=== PATIENT | female | born 1990 | race Caucasian/White ===

== ENCOUNTER 2016-11-22 23:24 | Emergency (ER) | payer OTHER ==
[~2016-11-22] VITALS: Ht 160 cm; Wt 72.7 kg
[2016-11-22 23:32] VITALS: Ht 160 cm; Wt 72.7 kg
--- NOTE | 2016-11-22 23:48 | ERD ---
ER Documentation Chief Complaint Date/Time DATE: 11/22/16 TIME: 23:46 Chief Complaint EPIGASTRIC CHEST PAIN TODAY AND SHARP ABD PAIN WITH NAUSEA HPI 26-year-old female presents here in emergency department for complaint of epigastric pain made chest pain started today, started at 2 PM today, patient states that she is a lot of spicy food. Patient states that it started in the epigastric area radiating to the back, and now is spreading onto the chest area. Patient described the pain as sharp burning pain 4/10 scale, not better or worse with anything. Patient denies any nausea or vomiting. Patient denies any palpitations or regular heartbeat. Patient denies any dizziness. Patient denies any fever or chills. ROS All systems reviewed and are negative except as per history of present illness. Medications Home Meds Active Scripts Ondansetron (Ondansetron Odt) 4 Mg Tab.rapdis, 4 MG PO Q8 Y for NAUSEA AND/OR VOMITING, #30 TAB Prov:VOILETA WOODSON NP 11/23/16 Magaldrate/Simethicone* (Mylanta*) 355 Ml Susp, 30 ML PO QID Y for GASTROINTESTINAL UPSET, #1 BOTTLE Prov:VIOLETA WOODSON NP 11/23/16 Omeprazole* (Omeprazole*) 20 Mg Capsule.dr, 20 MG PO DAILY, #30 Prov:VIOLETA WOODSON NP 11/23/16 Hydrocodone/Acetaminophen (Pentwater 5-325 Tablet) 1 Each Tablet, 1 TAB PO Q6H Y for SEVERE PAIN LEVEL 7-10, #20 TAB Prov:VIOLETA WOODSON NP 11/23/16 Reported Medications [none] Unknown Strength No Conflict Check 11/22/16 Allergies Allergies: Coded Allergies: No Known Allergy (Unverified , 11/22/16) PMhx/Soc Medical and Surgical Hx: pt denies Medical Hx, pt denies Surgical Hx FmHx Family History: No coronary disease, No diabetes, No other Physical Exam Vitals Vital Signs Date Time Temp Pulse Resp B/P Pulse Ox O2 Delivery O2 Flow Rate FiO2 11/22/16 23:32 98.5 76 16 133/66 99 Physical Exam GENERAL: The patient is well developed and appropriate for usual state of health, in no apparent distress. CHEST: Clear to auscultation bilaterally. There are no rales, wheezes or rhonchi. HEART: Regular rate and rhythm. No murmurs, clicks, rubs or gallops. No S3 or S4. ABDOMEN: Soft, nontender and nondistended. Good bowel sounds. No rebound or guarding. No gross peritonitis. No gross organomegaly or masses. No Hinton sign or McBurney point tenderness. BACK: No midline or flank tenderness. EXTREMITIES: Equal pulses bilaterally. There is no peripheral clubbing, cyanosis or edema. No focal swelling or erythema. Full range of motion. Grossly neurovascularly intact. NEURO: Alert and oriented. Cranial nerves 2-12 intact. Motor strength in all 4 extremities with 5/5 strength. Sensation grossly intact. Normal speech and gait. SKIN: There is no apparent rash or petechia. The skin is warm and dry. HEMATOLOGIC AND LYMPHATIC: There is no evidence of excessive bruising or lymphedema. No gross cervical, axillary, or inguinal lymphadenopathy. Result Diagram: 11/23/16 0015 11/23/16 0015 Results 24 hrs Laboratory Tests Test 11/23/16 00:01 11/23/16 00:15 Urine Color LT. YELLOW Urine Clarity CLEAR Urine pH 6.5 Urine Specific [place] 1.015 Urine Ketones NEGATIVE Urine Nitrite NEGATIVE Urine Bilirubin NEGATIVE Urine Urobilinogen 0.2 E.U./dL Urine Leukocyte Esterase NEGATIVE Urine Microscopic RBC 0-2/HPF Urine Microscopic WBC 0-2/HPF Urine Squamous Epithelial Cells MANY Urine Amorphous Urates FEW Urine Bacteria OCCASIONAL Urine Hemoglobin 1+ Urine Glucose NEGATIVE% Urine Total Protein NEGATIVE White Blood Count 9.510^3/ul Red Blood Count 3.9610^6/ul Hemoglobin 12.4g/dl Hematocrit 36.1% Mean Corpuscular Volume 91.2fl Mean Corpuscular Hemoglobin 31.3pg Mean Corpuscular Hemoglobin Concent 34.3g/dl Red Cell Distribution Width 11.9% Platelet Count 55793^3/UL Mean Platelet Volume 9.9fl Neutrophils % 61.9% Lymphocytes % 31.0% Monocytes % 5.2% Eosinophils % 1.5% Basophils % 0.2% Nucleated Red Blood Cells % 0.0/100WBC Neutrophils # 5.910^3/ul Lymphocytes # 2.910^3/ul Monocytes # 0.510^3/ul Eosinophils # 0.110^3/ul Basophils # 0.010^3/ul Nucleated Red Blood Cells # 0.010^3/ul Sodium Level 136mmol/L Potassium Level 3.9mmol/L Chloride Level 102mmol/L Carbon Dioxide Level 27mmol/L Anion Gap 11 Blood Urea Nitrogen 15mg/dl Creatinine 0.77mg/dl Glucose Level 100mg/dl Calcium Level 9.4mg/dl Total Bilirubin 0.2mg/dl Direct Bilirubin 0.00mg/dl Indirect Bilirubin 0.2mg/dl Aspartate Amino Transf (AST/SGOT) 16IU/L Alanine Aminotransferase (ALT/SGPT) 23IU/L Alkaline Phosphatase 75IU/L Total Protein 7.7g/dl Albumin 4.4g/dl Globulin 3.30g/dl Albumin/Globulin Ratio 1.33 Lipase 196U/L Current Medications Medications (Trade) Dose Ordered Sig/[place]lesia Route PRN Reason Start Time Stop Time Status Last Admin Dose Admin Miscellaneous Medication (Gi Cocktail (2)) 40 ml ONCE ONCE PO 11/23/16 00:00 11/23/16 00:01 DC 11/23/16 00:00 Famotidine (Pepcid) 20 mg ONCE ONCE PO 11/23/16 01:00 11/23/16 01:01 DC 11/23/16 01:03 Acetaminophen/ Hydrocodone Bitart (P[place] (5/325)) 1 tab ONCE ONCE PO 11/23/16 01:30 11/23/16 01:31 UNV EKG was done, read by me and is normal sinus rhythm at a rate of 71, normal axis , there is no ST changes or changes in the EKG that indicates any cardiac emergencies at this time. Patient's EKG was also reviewed by Dr. Calderon. Impression: no acute findings on EKG GI cocktail was given here in emergency department, after treatment, patient verbalized feeling much better. PROCEDURE: US right upper quadrant CLINICAL INDICATION: Abdominal pain TECHNIQUE: Multiple real-time images were acquired of the patient's right upper abdomen utilizing a high resolution transducer. COMPARISON: None available FINDINGS: Liver: Normal in size, contour and echogenicity. The maximum dimension estimated at 16.5 cm. The main portal vein is patent with normal directional blood flow. . Gallbladder: Multiple mobile echogenic foci with distal acoustic shadowing are present. . There is no evidence of gallbladder wall thickening or pericholecystic fluid. No sonographic Hinton's sign is reported. Common bile duct: Normal; 3.3 mm. There is no evidence for choledocholithiasis. Right Kidney: Normal; maximum length measured at approximately 10.5 cm. Pancreas: Visualized portions are normal. The tail is partially obscured by bowel gas. RPTAT:HJJR IMPRESSION: Cholelithiasis without evidence of cholecystitis. Geo Crane Physician Date Time Electronically viewed and signed by Physician Doris on 11/23/2016 00:59 JR/ CC: VIOLETA WOODSON ANALYTICAL RESEARCH CHEMIST PROCEDURE: XR Chest. CLINICAL INDICATION: Chest pain. Abdominal pain TECHNIQUE: Portable AP upright view of the chest was obtained. COMPARISON: None. FINDINGS: The cardiomediastinal silhouette is within normal limits. The lungs are clear. There is no evidence for pleural effusion, pneumothorax or pulmonary vascular congestion. The osseous structures are intact with no evidence for acute abnormality. No free air seen below the diaphragm. RPTAT:HJJR IMPRESSION: No evidence for acute intrathoracic pathology. Geo Crane Physician Date Time Electronically viewed and signed by Physician Doris on 11/23/2016 00:58 JR/ CC: VIOLETA WOODSON NP CC: VIOLETA WOODSON NP Procedures/MDM Medical Decision Making: Patient's symptoms most likely consistent with biliary colic, and also gastritis acid reflux disease. No symptoms of cholecystitis, choledocholithiasis. There is low suspicion for abdominal emergencies at this time. Patients abdominal exam is normal at this time. Patients radiology exam does not show any abdominal emergencies at this time. There is low suspicion for appendicitis, cholecystitis, abdominal aortic aneurysms or peritonitis at this time. There is low suspicion for sepsis. Patient appears well and is hemodynamically stable.M There is low suspicion for cardiopulmonary emergencies at this time. Patient has low risk factors. EKG is normal, there is no changes in the EKG that indicates cardiac emergencies. Chest X-ray does not show cardiopulmonary emergencies at this time. There is low suspicion for aortic aneurysm, myocardial infarction, pneumothorax, pleural effusion, pulmonary embolism, or any other cardiopulmonary emergencies at this time. Disposition: Home. Condition: Stable Prescription Pentwater omeprazole Mylanta Zofran Instructions: Patient is advised to take medications as prescribed. Patient is advised to rest, increase fluid intake and do brat diet for next 1-2 days and progress as tolerated him avoid fatty food, eat at regular intervals. See general surgeon for possible removal of gallbladder.. Patient is advised that if symptoms are worse, severe abdominal pain, uncontrolled vomiting, high fever , severe flank pain, worst signs and symptoms, to return to the emergency department immediately. Otherwise, patient can follow up with primary care doctor in 5-7 days. Departure Diagnosis: Primary Impression: Biliary colic Additional Impression: Acid reflux Esophagitis presence: without esophagitis Qualified Code: K21.9 - Gastroesophageal reflux disease without esophagitis Condition: Stable Patient Instructions: Biliary Colic With Gallstone (Confirmed), Gastroesophageal Reflux Disease (GERD) Additional Instructions: Patient is advised to take medications as prescribed. Patient is advised to rest , increase fluid intake and do brat diet for next 1-2 days and progress as tolerated him avoid fatty food, eat at regular intervals. See general surgeon for possible removal of gallbladder.. Patient is advised that if symptoms are worse, severe abdominal pain, uncontrolled vomiting, high fever, severe flank pain, worst signs and symptoms, to return to the emergency department immediately. Otherwise, patient can follow up with primary care doctor in 5-7 days. VIOLETA WOODSON NP Nov 22, 2016 23:48
[2016-11-23] MEDS ORDERED: LIDOCAINE/MYLANTA 40 ML BTL PO ONE
[2016-11-23 00:22] LABS: ADD SCAN DIFF NO
[2016-11-23 00:28] LABS: BASOPHILS % 0.2 % (0.0-2.0); EOSINOPHILS # 0.1 10^3/ul (0.0-0.5); EOSINOPHILS % 1.5 % (0.0-7.0); HEMATOCRIT 36.1 % (37.0-47.0); HEMOGLOBIN 12.4 g/dl (12.0-16.0); LYMPHOCYTES # 2.9 10^3/ul (0.8-2.9); MEAN CORPUSCULAR HEMOGLOBIN 31.3 pg (29.0-33.0); MEAN CORPUSCULAR HGB CONC 34.3 g/dl (32.0-37.0); MEAN CORPUSCULAR VOLUME 91.2 fl (82.0-101.0); MEAN PLATELET VOLUME 9.9 fl (7.4-10.4); MONOCYTE # 0.5 10^3/ul (0.3-0.9); MONOCYTES % 5.2 % (0.0-11.0); NEUTROPHIL # 5.9 10^3/ul (1.6-7.5); NEUTROPHILS % 61.9 % (39.0-77.0); PLATELET COUNT 248 10^3/UL (140-415); RED BLOOD COUNT 3.96 10^6/ul (4.20-5.40); RED CELL DISTRIBUTION WIDTH 11.9 % (11.5-14.5); WHITE BLOOD COUNT 9.5 10^3/ul (4.8-10.8)
[2016-11-23 00:39] LABS: ALBUMIN 4.4 g/dl (3.3-4.9); ALBUMIN/GLOBULIN RATIO 1.33; BILIRUBIN,INDIRECT 0.2 mg/dl (0-1.1); BILIRUBIN,TOTAL 0.2 mg/dl (0.2-1.3); CALCIUM 9.4 mg/dl (8.4-10.2); CREATININE 0.77 mg/dl (0.44-1.00); POTASSIUM 3.9 mmol/L (3.5-5.1); TOTAL PROTEIN 7.7 g/dl (6.1-8.1)
[2016-11-23 00:41] LABS: ADD UMIC YES; URINE BILIRUBIN (Dip) NEGATIVE (NEGATIVE); URINE BLOOD (Dip) 1+ (NEGATIVE); URINE COLOR LT. YELLOW (YELLOW); URINE GLUCOSE (Dip) NEGATIVE (NEGATIVE); URINE KETONES (Dip) NEGATIVE (NEGATIVE); URINE LEUKOCYTE ESTERASE (Dip) NEGATIVE (NEGATIVE); URINE NITRITE (Dip) NEGATIVE (NEGATIVE); URINE TOTAL PROTEIN (Dip) NEGATIVE (NEGATIVE); URINE UROBILINOGEN (Dip) 0.2 E.U./dL (0.1-1.0)
--- NOTE | 2016-11-23 00:58 | RADRPT ---
PROCEDURE: XR Chest. CLINICAL INDICATION: Chest pain. Abdominal pain TECHNIQUE: Portable AP upright view of the chest was obtained. COMPARISON: None. FINDINGS: The cardiomediastinal silhouette is within normal limits. The lungs are clear. There is no evidenc e for pleural effusion, pneumothorax or pulmonary vascular congestion. The osseous structures are i ntact with no evidence for acute abnormality. No free air seen below the diaphragm. RPTAT:HJJR IMPRESSION: No evidence for acute intrathoracic pathology. Physician Doris Date Time Electronically viewed and signed by Physician Doris on 11/23/2016 00:58 JR/
[2016-11-23 00:59] LABS: BACTERIA,URINE OCCASIONAL; SQUAMOUS EPITHELIAL CELL,UR MANY; URINE RBCS 0-2 /HPF (0)
--- NOTE | 2016-11-23 00:59 | RADRPT ---
PROCEDURE: US right upper quadrant CLINICAL INDICATION: Abdominal pain TECHNIQUE: Multiple real-time images were acquired of the patient's right upper abdomen utilizing a high resolution transducer. COMPARISON: None available FINDINGS: Liver: Normal in size, contour and echogenicity. The maximum dimension estimated at 16.5 cm. The main portal vein is patent with normal directional blood flow. . Gallbladder: Multiple mobile echogenic foci with distal acoustic shadowing are present. . There is no evidence of gallbladder wall thickening or pericholecystic fluid. No sonographic Hinton's sign i s reported. Common bile duct: Normal; 3.3 mm. There is no evidence for choledocholithiasis. Right Kidney: Normal; maximum length measured at approximately 10.5 cm. Pancreas: Visualized portions are normal. The tail is partially obscured by bowel gas. RPTAT:HJJR IMPRESSION: Cholelithiasis without evidence of cholecystitis. Physician Doris Date Time Electronically viewed and signed by Physician Doris on 11/23/2016 00:59 /
[2016-11-23] MEDS ORDERED: FAMOTIDINE 20 MG TAB PO ONE (01:00)
[2016-11-23] MEDS ORDERED: MAG-19 PO (01:10)
[2016-11-23] MEDS ORDERED: ONDA4TAB14 PO (01:10)
[2016-11-23] MEDS ORDERED: HYDR-906 PO (01:10)
[2016-11-23] MEDS ORDERED: OMEP20CA16 PO (01:10)
[2016-11-23 01:28] VITALS: BP 124/73; PULSE 76; RESP 18
[2016-11-23] MEDS ORDERED: HYDROCODONE/APAP (5/325) TAB PO ONE (01:30)
== END 2016-11-23 01:33 | disposition home or self-care (01) ==
LOC: FTE 23:24
DX: K80.50 Calculus of bile duct without cholangitis or cholecystitis without obstruction (principal); K21.9 Gastro-esophageal reflux disease without esophagitis
CPT/HCPCS: 71010; 76705; 80053; 81001; 83690; 85025; 93005; Z7502; Z7610; 81003